=== PATIENT | female | born 2000 | race Caucasian/White ===

== ENCOUNTER 2023-05-23 17:04 | Emergency (ER) | payer SELFPAY ==
[2023-05-23] MEDS ORDERED: Acetaminophen 500 MG Tab PO STA (17:18)
[2023-05-23] MEDS ORDERED: Ketorolac 10 MG Tab PO STA (17:18)
== END 2023-05-23 18:44 | disposition home or self-care (01) ==
LOC: MW.ED 17:04
DX: M25.511 Pain in right shoulder (principal); Z88.8 Allergy status to other drugs, medicaments and biological substances
CPT/HCPCS: 73030; 99283; A9270

== ENCOUNTER 2023-09-10 00:01 | Emergency (ER) | payer MEDICAID | END 2023-09-10 01:30 | disposition home or self-care (01) | LOC: MW.ED 00:01 | DX: M25.571 Pain in right ankle and joints of right foot (principal); Z88.8 Allergy status to other drugs, medicaments and biological substances | CPT/HCPCS: 73610-26-RT; 73610-RT; 73620-26-RT; 73620-RT; 99283 ==

== ENCOUNTER 2024-09-13 18:30 | Emergency (ER) | payer MEDICAID ==
[2024-09-13] MEDS: Lidocaine 4% 1 each Patch TOP STA (20:59)
[2024-09-13] MEDS: Acetaminophen 500 MG Tab PO STA (21:00)
== END 2024-09-13 21:36 | disposition home or self-care (01) ==
LOC: MW.ED 18:30
DX: O26.893 Other specified pregnancy related conditions, third trimester (principal); M54.50 Low back pain, unspecified; Z79.899 Other long term (current) drug therapy; Z88.8 Allergy status to other drugs, medicaments and biological substances; Z75.8 Other problems related to medical facilities and other health care; Z3A.00 Weeks of gestation of pregnancy not specified
CPT/HCPCS: 99283; A9270

== ENCOUNTER 2024-12-11 15:40 | Emergency (ER) | payer MEDICAID | END 2024-12-11 16:47 | disposition home or self-care (01) | LOC: MW.ED 15:40 | DX: L03.311 Cellulitis of abdominal wall (principal); Z75.8 Other problems related to medical facilities and other health care; Z88.8 Allergy status to other drugs, medicaments and biological substances; Z79.899 Other long term (current) drug therapy | CPT/HCPCS: 99283 ==

== ENCOUNTER 2024-12-12 11:33 | Emergency (ER) | payer MEDICAID ==
[2024-12-12] MEDS: Iopamidol 755 MG/ML 500 ML Multipack Bottle IVPUSH STA (12:06)
[2024-12-12 13:08] LABS: BASOPHILS ABSOLUTE AUTO 0.01 K/uL (0.00-0.20); BASOPHILS PERCENT AUTO 0.1 % (0.0-1.0); EOSINOPHILS ABSOLUTE AUTO 0.23 K/uL (0.00-0.45); EOSINOPHILS PERCENT AUTO 2.3 % (0.0-6.0); HEMATOCRIT 28.2 % (37.0-47.0); HEMOGLOBIN 8.9 g/dL (12.0-16.0); IMMATURE GRAN ABSOLUTE AUTO 0.05 K/uL (0.00-0.05); IMMATURE GRAN PERCENT AUTO 0.5 % (0.0-0.4); LYMPHOCYTES ABSOLUTE AUTO 1.56 K/uL (1.00-4.80); LYMPHOCYTES PERCENT AUTO 15.8 % (24.0-44.0); MEAN CORPUSCULAR HEMOGLOBIN 25.9 pg (28.0-32.0); MEAN CORPUSCULAR HGB CONC 31.6 g/dL (32.0-36.0); MEAN CORPUSCULAR VOLUME 82.2 fL (83.0-99.0); MEAN PLATELET VOLUME 10.4 fL (9.4-12.3); MONOCYTES ABSOLUTE AUTO 0.79 K/uL (0.00-0.80); NEUTROPHILS ABSOLUTE AUTO 7.26 K/uL (1.80-7.70); NEUTROPHILS PERCENT AUTO 73.3 % (41.0-71.0); PLATELET COUNT,PLT 254 K/uL (150-400); RED BLOOD CELL COUNT 3.43 M/uL (4.10-5.30)
[2024-12-12 13:31] LABS: A/G RATIO 0.6 (0.9-1.6); ALBUMIN 2.5 g/dL (3.4-5.0); BILIRUBIN TOTAL 0.5 mg/dL (0.2-1.0); CALCIUM 8.3 mg/dL (8.5-10.1); CARBON DIOXIDE,CO2 21.9 mmol/L (21.0-32.0); CREATININE 0.6 mg/dL (0.6-1.0); EST CRCL DRUG DOSING (CG) 143.33 mL/min; PROTEIN TOTAL,TP 6.5 g/dL (6.4-8.2)
[2024-12-12] MEDS: LORazepam 2 MG/ML SDV IVPUSH STA (14:14)
== END 2024-12-12 16:06 | disposition left against medical advice (07) ==
LOC: MW.ED 11:33
DX: O90.0 Disruption of cesarean delivery wound (principal); R18.8 Other ascites; Z67.40 Type O blood, Rh positive; Z88.8 Allergy status to other drugs, medicaments and biological substances; Z75.8 Other problems related to medical facilities and other health care; Z79.899 Other long term (current) drug therapy
CPT/HCPCS: 36415; 74177; 80053; 83690; 85025; 86850; 86900; 86901; 96374; 99285; J2060; Q9967

== ENCOUNTER 2024-12-25 20:09 | Emergency (ER) | payer MEDICAID ==
[2024-12-25] MEDS: Sulfamethoxazole/Trimethoprim 800-160 MG Tab PO ONE (21:04)
== END 2024-12-25 21:18 | disposition home or self-care (01) ==
LOC: MW.ED 20:09
DX: L03.90 Cellulitis, unspecified (principal); Z88.8 Allergy status to other drugs, medicaments and biological substances; Z79.899 Other long term (current) drug therapy
CPT/HCPCS: 99283; A9270; 99282

== ENCOUNTER 2025-09-07 15:34 | Emergency (ER) | payer MEDICAID | END 2025-09-07 18:08 | disposition left against medical advice (07) | LOC: MW.ED 15:34 | DX: Z53.21 Procedure and treatment not carried out due to patient leaving prior to being seen by health care provider (principal) | CPT/HCPCS: 87428-QW; 87651 ==